=== PATIENT | female | born 1985 | race Hispanic/Latino ===

== ENCOUNTER 2020-10-25 11:25 | Outpatient (CLI) | payer OTHER ==
[2020-10-26 05:52] LABS: SARS-CoV-2 PCR by NAA Not Detected (NotDetected)
== END 2020-10-25 11:26 | disposition home or self-care (01) ==
LOC: EDBD → CSHLAB 11:25
PROVIDERS: ATTEND Family Medicine
DX: Z20.822 Contact with and (suspected) exposure to COVID-19 (principal)
CPT/HCPCS: 87635; U0003; U0005

== ENCOUNTER 2020-10-27 04:59 | Inpatient (IN) | payer MEDICAID, OTHER, SELFPAY ==
[2020-10-27 05:48] VITALS: BMI 29.0
[2020-10-27] MEDS ORDERED: Famotidine/PF 20 mg/2ml Vial SLOW IVP PRN (06:41)
[2020-10-27] MEDS ORDERED: Bicitra 30 ML UDCUP PO PRN (06:41)
[2020-10-27] MEDS ORDERED: CEFAZOLIN 2 GM in Premix Bag 1 BAG IVPB SCH (06:41)
[2020-10-27] MEDS ORDERED: hydrALAZINE 20 MG/ML VIAL SLOW IVP PRN ×2 (06:41→11:55)
[2020-10-27] MEDS ORDERED: Promethazine HCl 25 MG/ML VIAL IM PRN ×2 (06:41→17:48)
[2020-10-27] MEDS ORDERED: Lactated Ringer's 1,000 ML IV SCH (06:41)
[2020-10-27] MEDS ORDERED: Ondansetron PF 4 MG/2 ML Vial IVP PRN ×3 (06:41→17:48)
[2020-10-27 06:54] LABS: Hemoglobin 11.3 g/dL (12.0-15.5); Mean Corpuscular HGB CONC 34.6 g/dL (32.0-36.0); Mean Corpuscular Hemoglobin 29.7 pg (27.0-33.0); Mean Corpuscular Volume 86.1 fl (81.6-98.3); Platelet Count 312 10x3/uL (150-450); RBC Distribution Width 14.7 % (11.5-14.5); White Blood Cell (WBC) Count 9.6 10x3/uL (3.5-10.5)
[2020-10-27] MEDS ORDERED: Ketorolac Tromethamine 30 MG/ML VIAL ONE (07:00)
[2020-10-27] MEDS ORDERED: Ondansetron PF 4 MG/2 ML Vial ONE (07:00)
[2020-10-27] MEDS ORDERED: Oxytocin 10 UNITS/ML VIAL ONE (07:00)
[2020-10-27] MEDS ORDERED: Morphine PF 10 MG/10 ML VIAL ONE (07:00)
[2020-10-27] MEDS ORDERED: PHENYLEPHRINE-NS 100 MCG/ML 10 ML SYRINGE ONE (07:00)
[2020-10-27] MEDS ORDERED: Dexamethasone 4 mg/ml Vial ONE (07:00)
[2020-10-27] MEDS ORDERED: Bicitra 30 ML UDCUP ONE (07:08)
[2020-10-27 07:21] LABS: Hep B Surf Ag Non-Reactive S/CO (NonReactive)
[2020-10-27 07:22] LABS: Syphilis Antibody Nonreactive (Nonreactive); Syphilis Antibody Index 0.03 S/CO (<1.00 Non-Reactive)
[2020-10-27 07:32] LABS: HBSAg Index 0.22 S/CO (0-0.99)
[2020-10-27] MEDS ORDERED: L&D-Morphine 4 MG/ML VIAL SLOW IVP PRN (09:49)
[2020-10-27] MEDS ORDERED: Meperidine HCl/PF 25 MG/ML VIAL SLOW IVP PRN (09:49)
[2020-10-27] MEDS ORDERED: Ondansetron HCl/PF 4 MG/2 ML Vial IVP PRN (09:49)
[2020-10-27] MEDS ORDERED: HYDROmorphone 2 MG/ML VIAL SLOW IVP PRN (09:49)
[2020-10-27] MEDS ORDERED: Ketorolac Tromethamine 30 MG/ML VIAL IVP SCH (10:00)
[2020-10-27] MEDS ORDERED: NS w/ Oxytocin 30 units 500 ML ONE (10:14)
[2020-10-27] MEDS ORDERED: Naloxone HCl 0.4 mg/ml Vial ONE (10:30)
[2020-10-27] MEDS ORDERED: diphenhydrAMINE 50 MG/ML VIAL ONE (10:30)
[2020-10-27] MEDS ORDERED: diphenhydrAMINE 25 MG CAP PO PRN (11:55)
[2020-10-27] MEDS ORDERED: Bisacodyl 10 MG SUPP PR PRN (11:55)
[2020-10-27] MEDS ORDERED: Lanolin Ointment 7 GM TUBE TOP PRN (11:55)
[2020-10-27] MEDS ORDERED: Adacel (T-DAP) 0.5 ML SYRINGE IM ONE (11:55)
[2020-10-27] MEDS ORDERED: HYDROcodone/Acetaminophen 5/325 mg Tablet PO PRN ×2 (11:55)
[2020-10-27] MEDS ORDERED: Docusate Calcium (SURFAK) 240 MG CAP PO SCH (12:00)
[2020-10-27] MEDS ORDERED: Ferrous Sulfate 325 MG TAB PO SCH (12:00)
[2020-10-27] MEDS ORDERED: Prenatal Vitamin 1 TAB PO SCH ×2 (17:00)
[2020-10-27] MEDS ORDERED: Naloxone HCl 0.4 mg/ml Vial IVP PRN ×2 (17:48)
[2020-10-27] MEDS ORDERED: Eucerin (Mineral Oil/Petrolatum,White) 30 gm Jar TOP PRN (17:48)
[2020-10-27] MEDS ORDERED: Ketorolac Tromethamine 30 MG/ML VIAL IVP PRN (17:48)
[2020-10-27] MEDS ORDERED: Naloxone HCl 0.4 mg/ml Vial IV PRN (17:48)
[2020-10-27] MEDS ORDERED: Promethazine HCl 25 MG SUPP PR PRN (17:48)
[2020-10-27] MEDS ORDERED: diphenhydrAMINE 50 MG/ML VIAL IVP PRN (17:48)
[2020-10-27] MEDS ORDERED: Communication Order-Pharmacy FS SCH (18:00)
[2020-10-27] MEDS: Simethicone Chewable 80 MG TAB PO PRN (18:21)
[2020-10-28] MEDS: Ibuprofen 800 MG TAB PO PRN ×3 (00:49→17:24)
[2020-10-28 07:27] LABS: Hemoglobin 9.8 g/dL (12.0-15.5); Mean Corpuscular Hemoglobin 29.6 pg (27.0-33.0); Mean Platelet Volume 10.2 fl (7.4-10.4); Platelet Count 294 10x3/uL (150-450); RBC Distribution Width 14.7 % (11.5-14.5); Red Blood Cell (RBC) Count 3.31 10x6/uL (3.90-5.03); White Blood Cell (WBC) Count 12.3 10x3/uL (3.5-10.5)
[2020-10-28] MEDS: Docusate Calcium (SURFAK) 240 MG CAP PO SCH ×3 (07:36→23:00)
[2020-10-28] MEDS: Ferrous Sulfate 325 MG TAB PO SCH ×3 (07:36→23:00)
[2020-10-28] MEDS: Prenatal Vitamin 1 TAB PO SCH (08:46)
[2020-10-28] MEDS: Simethicone Chewable 80 MG TAB PO PRN (12:22)
[2020-10-28] MEDS ORDERED: Ibuprofen 800 MG TAB PO SCH (14:00)
[2020-10-29] MEDS: Ibuprofen 800 MG TAB PO PRN ×3 (00:08→13:57)
[2020-10-29 08:02] VITALS: BP 115/62; TEMP 98.2
[2020-10-29] MEDS: Ferrous Sulfate 325 MG TAB PO SCH (08:15)
[2020-10-29] MEDS: Docusate Calcium (SURFAK) 240 MG CAP PO SCH (08:15)
[2020-10-29] MEDS: Prenatal Vitamin 1 TAB PO SCH (08:15)
== END 2020-10-29 15:30 | disposition home or self-care (01) | DRG 788 ==
LOC: EDBD → CSHLD 04:59 → EDBD 04:59 → CSHANTE 11:08
PROVIDERS: ADMIT Family Medicine; ATTEND Family Medicine
PROC: 10D00Z1 Extraction of Products of Conception, Low, Open Approach (ICD-10-PCS; principal; 2020-10-28)
DX: O34.211 Maternal care for low transverse scar from previous cesarean delivery (principal); Z3A.39 39 weeks gestation of pregnancy; Z37.0 Single live birth
CPT/HCPCS: 51702; 85027; 86780; 86850; 86900; 86901; 87340; J1100; J1200; J1885; J2270; J2310; J2405; J2590; J7120